=== PATIENT | female | born 1950 | race African-American/Black ===

== ENCOUNTER → 2016-12-20 | Outpatient (CLI) | payer MEDICARE ==
[~2016-12-20] MED LIST: LOSARTAN-HCTZ1 EACH PO; METFORMIN PO; SYNTHROID75 MCG PO
--- NOTE | ~2016-12-20 | MY29 ---
[facility] A Service of [facility] RADIOLOGY TEXT RESULTS PATIENT: JOANA ROSENBAUM LOCATION: [facility] : 52 UNIT #: [id number] AGE: [address]: Elaine Summers MD SEX: F ORDER DR: [id number] [facility]. [place], [place] [address] [id number] MR#: [id number] Acc #: [id number] NAME: JOANA ROSENBAUM : 1950 SEX: F STUDY DATE/TIME: 12/20/2016 9:45 UNIT: [facility] ROOM: STUDY DESCRIPTION: MY ENRIQUETA SCREENING W/ CAD BILAT Attending Physician: Elaine Summers M.D. Referring Physician: Elaine Summers M.D. Ordering Physician: Elaine Summers M.D. Primary Care Physician: Elaine Summers M.D. MEDICAL IMAGING REPORT This report is preliminary unless electronic signature is present EXAM Bilateral Digital Screening Mammogram with CAD INDICATION Breast cancer screening. 66-year-old asymptomatic female. No personal or family history of breast cancer. COMPARISON February 26, 2015; January 23, 2014; October 26, 2011; March 26, 2008 and March 23, 2006. FINDINGS The breasts are almost entirely fatty. No suspicious findings are present. IMPRESSION No mammographic evidence of malignancy. Annual screening mammography and clinical breast exam are recommended. A result letter will be sent to the patient. Patients over the age of 40 are entered into a reminder system with target due date for the next mammogram. BIRADS: 1 Negative Dictated by... Wu Spicer M.D. THIS IS AN ELECTRONICALLY VERIFIED REPORT Wu Spicer M.D. at 12/24/2016 10:25 PM Lester TD: 12/20/2016 15:56 [facility] A Service of [facility] RADIOLOGY TEXT RESULTS PATIENT: JOANA ROSENBAUM LOCATION: [facility] #: [id number] : 52 UNIT #: [id number] AGE: [address]: Elaine Summers MD SEX: F ORDER DR: JOB #: [id number] MEDICAL IMAGING REPORT Page 1 of 1 COPY
== END | disposition home or self-care (01) ==
LOC: CWCC 09:20
DX: Z12.31 Encounter for screening mammogram for malignant neoplasm of breast (principal)
CPT/HCPCS: G0202